=== PATIENT | male | born 1950 | race Hispanic/Latino ===

== ENCOUNTER → 2017-12-01 | Outpatient (CLI) | payer OTHER | END | disposition home or self-care (01) | LOC: OIH 15:20 | PROVIDERS: ATTEND Internal Medicine | DX: L97.529 Non-pressure chronic ulcer of other part of left foot with unspecified severity (principal); M79.89 Other specified soft tissue disorders | CPT/HCPCS: 73620 ==

== ENCOUNTER → 2019-01-21 | Outpatient (CLI) | payer OTHER | END | disposition home or self-care (01) | LOC: OIH 15:01 | PROVIDERS: ATTEND Internal Medicine | DX: I70.0 Atherosclerosis of aorta (principal); I10 Essential (primary) hypertension | CPT/HCPCS: 71046 ==

== ENCOUNTER 2019-03-11 07:16 | Day surgery (SDC) | payer OTHER ==
[2019-03-08 11:15] VITALS: BP 115/72
[2019-03-08 11:32] LABS: BASOPHILS % (AUTO) 1.1 % (0.0-5.0); EOSINOPHILS % (AUTO) 4.8 % (0.0-8.0); HEMATOCRIT 41.7 % (42-54); LYMPHOCYTES % (AUTO) 30.6 % (21.0-51.0); MEAN CORPUSCULAR HEMOGLOBIN 31.7 pg (27.0-33.0); MEAN CORPUSCULAR VOLUME 93.2 fL (79-99); MONOCYTES % (AUTO) 6.5 % (3.0-13.0); PLATELET COUNT (AUTO) 140 K/uL (130-400); RED BLOOD CELL COUNT(AUTO) 4.47 MIL/uL (4.50-6.20); RED CELL DISTRIBUTION WIDTH 16.4 % (11.0-15.5); WHITE BLOOD COUNT (AUTO) 4.7 K/uL (4.8-10.8)
[2019-03-08 11:39] LABS: CREATININE 1.1 mg/dL (0.5-1.5); POTASSIUM 4.2 mmol/L (3.5-5.1)
[2019-03-08 11:49] LABS: INR 1.18 (0.85-1.15); PARTIAL THROMBOPLASTIN TIME 28.7 SEC (26.3-35.5); PROTHROMBIN TIME 12.3 SEC (9.6-11.6)
[2019-03-08 12:36] LABS: APPEARANCE,URINE Clear (CLEAR); BILIRUBIN,URINE Negative (NEGATIVE); COLOR,URINE Yellow (YELLOW); GLUCOSE, URINE (UA) Negative (NEGATIVE); KETONES,URINE Negative (NEGATIVE); LEUKOCYTE ESTERASE ,URINE Negative (NEGATIVE); NITRATE,URINE Negative (NEGATIVE); OCCULT BLOOD,URINE Negative (NEGATIVE); PROTEIN,URINE Trace mg/dL (NEGATIVE)
[2019-03-08 12:52] LABS: BACTERIA,URINE Rare /HPF (None Seen); RBC,URINE 0-1 /HPF (0-1); SQUAMOUS EPITHELIAL CELL,UR Rare /HPF (0-2); WBC,URINE 0-1 /HPF (0-1)
--- NOTE | 2019-03-10 16:18 | NUR ---
ABNORMAL LABS REPORTED TO ARTIS CONTRERAS NP.
[2019-03-11] VITALS (10 sets, daily range): BP systolic 121–140; BP diastolic 78–85
[~2019-03-11] VITALS: Ht 171.4 cm; Wt 77.2 kg
[~2019-03-11 07:16] MED LIST: ATOR40TA71 PO; CARV3.12 PO; CHOL500050 PO; CLOP75TA14 PO; GLIPIZIDE PO; PANT20TA12 PO; SACU1TAB7 PO; TORS20TA4 PO
[2019-03-11] MEDS ORDERED: SODIUM CHLORIDE 0.9% 1000ML 1,000 ML IV ONE (07:33)
[2019-03-11] MEDS ORDERED: NITROGLYCERIN 5 MG/ML 10 ML VIAL IV ONE (07:48)
[2019-03-11] MEDS ORDERED: IOHEXOL 350 MG/ML 100ML INFUS..BTL IV ONE (07:48)
[2019-03-11] MEDS ORDERED: LIDOCAINE HCL 2% 20ML ONE (07:48)
[2019-03-11] MEDS ORDERED: IOHEXOL-350 50ML VIAL IV ONE (07:48)
--- NOTE | 2019-03-11 07:54 | NUR ---
skin left heel ulcer covered with dressing from home, dry and intact, no drainage noted. spouse changes dressing at home QOD, Addendum: 03/11/19 at 0756 by AMINAH RUANO RN Amended: Links added.
--- NOTE | 2019-03-11 08:10 | NUR ---
procedure patient taken to lab animal technologist for procedure. no distress noted. spouse at bedside
[2019-03-11] MEDS ORDERED: MIDAZOLAM HCL 1 MG/ML 2ML VIAL ONE (08:17)
[2019-03-11] MEDS ORDERED: GLUCAGON 1MG KIT 1 MG ML IM PRN (09:15)
[2019-03-11] MEDS ORDERED: DEXTROSE 50%-WATER 50 ML DISP.SYRIN IV PRN (09:15)
--- NOTE | 2019-03-11 09:35 | NUR ---
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 VS STABLE , PLAN OF CARE DISCUSS WITH PATIENT/ SPOUSE, INSTRUCTED TO KEEP BEDREST FOR 4HOURS. PT DENIES ANY PAIN OR DISCOMFORTS.
--- NOTE | 2019-03-11 10:18 | NUR ---
MD DR RICHMOND SPOKE TO FAMILY ABOUT [facility] FINDINGS AND OPTIONS
[2019-03-11] MEDS ORDERED: INSULIN HUMULIN R 100 UNIT/ML 3ML SQ SCH (11:30)
--- NOTE | 2019-03-11 13:00 | NUR ---
dc dc instructions given to pt/ pts spouse, instructed to f/u with Tori HESTER on 03/17/19 , also informed them that they need to see Dr. Katie Sanchez a physician in [place] as per dr. eric ramos for second opinion on [facility] results and heart transplant options if patient is candiate. I spoke to Dr. Sanchez office all information fax to them they will call patient with f/u appointment if all insurance information goes [facility]. patient / spouse verbalized understanding. patient cannot go home until Dr. Corrales comes sees patient first . Dr. Jama is aware of consult already pt awake and alert, no distress noted. right groin dressing dry and intact
--- NOTE | 2019-03-11 14:45 | NUR ---
CONSULT DR. CATALAN IN TO SEE PATIENT.
--- NOTE | 2019-03-11 15:05 | NUR ---
DC PT DC HOME VIA WC, NO DISTRESS NOTED. DENIED ANY PAIN OR DISCOMFORTS. RIGHT GROIN DRESSING DRY AND INTACT , NO HEMATOMA OR BLEEDING TO SITE. VS STABLE , PT DENIED ANYPAIN OR DISCOMFORTS. ACCOMPANIED BY SPOUSE,NO PIV NOTED
== END 2019-03-11 15:05 | disposition home or self-care (01) ==
LOC: DAH 07:16
PROVIDERS: ATTEND Internal Medicine Cardiovascular Disease
DX: I25.10 Atherosclerotic heart disease of native coronary artery without angina pectoris (principal); I25.5 Ischemic cardiomyopathy; E11.59 Type 2 diabetes mellitus with other circulatory complications; Z98.890 Other specified postprocedural states; Z82.49 Family history of ischemic heart disease and other diseases of the circulatory system; Z79.899 Other long term (current) drug therapy; I11.0 Hypertensive heart disease with heart failure; I50.22 Chronic systolic (congestive) heart failure; Z79.84 Long term (current) use of oral hypoglycemic drugs
CPT/HCPCS: 36415; 71045; 80048; 81001; 82948 ×2; 85025; 85610; 85730; 93005; 93458; C1760; C1894; J1644; J2250; J3490 ×2; J7030; Q9965; Q9967 ×2; 99156; 99157